=== PATIENT | female | born 1945 | race Caucasian/White ===

== ENCOUNTER 2019-10-17 12:11 | Observation (INO) | payer MEDICARE, BC ==
[~2019-10-17] VITALS: Ht 154.9 cm; Wt 72.7 kg
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
[2019-10-17 13:35] LABS: BASOPHILS 0.2 % (0-2); EOSINOPHILS 3.3 % (0-7); HEMATOCRIT 37.8 % (36.0-48.0); HEMOGLOBIN 12.4 g/dL (12-16); IMMATURE GRANULOCYTES 0.3 % (0-5); LYMPHOCYTES 14.4 % (15-50); MCH 30.5 pg (26.0-34.0); MCHC 32.8 g/dL (31.0-37.0); MCV 93.1 fL (80.0-100.0); MEAN PLATELET VOLUME 11.7 fL (7.4-10.4); MONOCYTES 5.3 % (2-11); NEUTROPHILS 76.5 % (40-80); PLATELET COUNT 282 10x3/uL (130-400); RBC 4.06 10x6/uL (4.00-5.40); RDW 12.2 % (11.5-14.5); WBC 9.1 10x3/uL (4.8-10.8)
[2019-10-17 13:43] LABS: ANION GAP 13.6 mmol/L (8-16); CALCIUM 9.1 mg/dL (8.5-10.1); CARBON DIOXIDE 26.6 mmol/L (21.0-32.0); CREATININE - SERUM 1.4 mg/dL (0.6-1.3); POTASSIUM - SERUM 4.2 mmol/L (3.5-5.1)
[2019-10-17 13:49] LABS: ALBUMIN 4.1 g/dL (3.4-5.0); BILIRUBIN - TOTAL 0.31 mg/dL (0.2-1.3); PROTEIN - SERUM 7.6 g/dL (6.4-8.2)
[2019-10-17 13:51] LABS: INR 2.83 (0.85-1.17); PROTIME 29.3 SECONDS (11.6-15.0)
[2019-10-17 15:30] VITALS: BP 171/63
[2019-10-17 15:40] LABS: BILIRUBIN NEGATIVE (NEGATIVE); GLUCOSE NEGATIVE (NEGATIVE); KETONE NEGATIVE (NEGATIVE); NITRITE NEGATIVE (NEGATIVE); UROBILINOGEN NORMAL (NORMAL)
[2019-10-17 15:41] LABS: RED CELLS - URINE OCC /hpf (0-5); WHITE CELLS - URINE 0-5 /hpf (NEGATIVE)
[2019-10-17] MEDS ORDERED: CYCLOBENZAPRINE10 MG PO (15:41)
[2019-10-17] MEDS ORDERED: ACETAMINOPHEN500 M1 PO (15:41)
[2019-10-17] MEDS ORDERED: NAPROSYN500 MG PO (15:41)
--- NOTE | 2019-10-17 16:14 | NUR ---
DR RANDALL ORDERED IVF'S DC'D
[2019-10-17 17:30] VITALS: BP 174/64
--- NOTE | 2019-10-17 18:13 | NUR ---
CALLED [facility] IN [place], [place] ([phone]) WILL FAX MED LIST
--- NOTE | 2019-10-17 18:20 | NUR ---
REPORT TO DIEGO PHILLIPS
[2019-10-17 18:25] VITALS: BP 172/52
[2019-10-17] MEDS ORDERED: IBUPROFEN800 MG PO (18:43)
--- NOTE | 2019-10-17 19:22 | NUR ---
I have reviewed this patient and I concur with the Shift Assessment completed by the Licensed Practical Nurse today this shift.
[2019-10-17 20:00] VITALS: BP 173/66
--- NOTE | 2019-10-17 20:00 | NUR ---
PT SITTING UP IN BED WITHOUT DISTRESS, STATES RIGHT SIDE OF CHEST AND RIGHT ANKLE HURTS. PROVIDED ICE PACKS FOR RIGHT FOOT. DAUGHTER BEDSIDE. UPDATED ON PLAN OF CARE. PROVIDED TURKEY SANDWICH, JELLO AND ICE WATER. PT REQUESTING HOME MEDS, SPECIFICALLY COUMADIN. PAGED DR AKBAR, CURRENTLY IN SURGERY. WILL COME TO SEE HER WHEN DONE.
[2019-10-17] MEDS ORDERED: COREG25 MG PO (20:33)
[2019-10-17] MEDS ORDERED: GEMFIBROZIL600 MG PO (20:34)
[2019-10-17] MEDS ORDERED: LEVOXYL125 MCG PO (20:34)
[2019-10-17] MEDS ORDERED: OMEPRAZOLE20 M1 PO (20:34)
[2019-10-17] MEDS ORDERED: ZETIA10 MG PO (20:34)
[2019-10-17] MEDS ORDERED: COZAAR100 MG PO (20:35)
[2019-10-17] MEDS ORDERED: COUMADIN5 MG PO (20:35)
[2019-10-17] MEDS ORDERED: CRESTOR20 MG PO (20:35)
[2019-10-17] MEDS ORDERED: NORPRAMIN25 MG PO (20:36)
[2019-10-17] MEDS ORDERED: HCTZ25 MG PO (20:36)
[2019-10-17 22:58] VITALS: BMI 30.3
--- NOTE | 2019-10-17 23:00 | NUR ---
DR AKBAR AT BEDSIDE
[2019-10-17 23:48] VITALS: Ht 154.9 cm; Wt 72.7 kg
[2019-10-18] VITALS: BP 117/70
[2019-10-18 04:00] VITALS: BP 137/56
[2019-10-18 06:05] LABS: BASOPHILS 0.3 % (0-2); HEMATOCRIT 37.2 % (36.0-48.0); HEMOGLOBIN 12.1 g/dL (12-16); IMMATURE GRANULOCYTES 0.3 % (0-5); LYMPHOCYTES 22.5 % (15-50); MCH 30.3 pg (26.0-34.0); MCHC 32.5 g/dL (31.0-37.0); MCV 93.2 fL (80.0-100.0); MEAN PLATELET VOLUME 11.9 fL (7.4-10.4); MONOCYTES 7.4 % (2-11); NEUTROPHILS 64.5 % (40-80); PLATELET COUNT 253 10x3/uL (130-400); RBC 3.99 10x6/uL (4.00-5.40); RDW 12.4 % (11.5-14.5)
[2019-10-18 06:16] LABS: ALBUMIN 3.8 g/dL (3.4-5.0); ANION GAP 11.7 mmol/L (8-16); BILIRUBIN - TOTAL 0.28 mg/dL (0.2-1.3); CALCIUM 9.5 mg/dL (8.5-10.1); CARBON DIOXIDE 27.5 mmol/L (21.0-32.0); CREATININE - SERUM 1.1 mg/dL (0.6-1.3); POTASSIUM - SERUM 4.2 mmol/L (3.5-5.1); PROTEIN - SERUM 7.2 g/dL (6.4-8.2)
[2019-10-18 06:18] LABS: WBC 6.2 10x3/uL (4.8-10.8)
[2019-10-18 08:38] VITALS: BP 137/59
--- NOTE | 2019-10-18 10:36 | NUR ---
PT STATED THAT PER DR AKBAR SHE WOULD BE DC THIS MORNING ABOUT 7AM. EXPLAINED TO PT THAT 7 IS SHIFT CHANGE AND OUR DC NURSE IS NOT IN YET AND WE ARE STILL WAITING ON DC PAPERWORK FROM DR AKBAR. DC IV IN BOTH AC WITH CATHETER INTACT. CONTINUE WITH PLAN OF CARE
[2019-10-18 12:41] VITALS: BP 155/63
== END 2019-10-18 15:03 | disposition home or self-care (01) ==
LOC: D.ER 12:11 → OBSVTIME 16:02 → D.MS 16:02 → OBSVTIME 17:26 → D.MS 10-18 15:03
PROVIDERS: Family Medicine; ADMIT Surgery; ATTEND Surgery
DX: S20.219A Contusion of unspecified front wall of thorax, initial encounter (principal); S96.911A Strain of unspecified muscle and tendon at ankle and foot level, right foot, initial encounter; V89.2XXA Person injured in unspecified motor-vehicle accident, traffic, initial encounter; I10 Essential (primary) hypertension